=== PATIENT | female | born 1945 | race Caucasian/White ===

== ENCOUNTER → 2016-07-06 | Outpatient (CLI) | payer MEDICARE, BC ==
[~2016-07-06] MED LIST: COMBIVENT INH; GUAI600T PO; MONT10TA21 PO; OMEP40CA6 PO
--- NOTE | 2016-07-08 08:47 | HKNOTE ---
DATE OF SERVICE: Now 10 days following arthroscopic surgery on her right knee. The patient is very pleased with the results so far. Her knee feels markedly improved, the wounds are healing well. Sutures were remove d. She is being sent for a course of outpatient physical therapy. She will be seen again as baldev henderson. Dictated By: DENISE NAIK/SANDEE Conf#: [id number] DID#: [id number]
== END | disposition home or self-care (01) ==
LOC: HKI 15:46
DX: Z47.89 Encounter for other orthopedic aftercare (principal); Z98.890 Other specified postprocedural states
CPT/HCPCS: G0463

== ENCOUNTER → 2016-08-03 | Outpatient (CLI) | payer MEDICARE, BC ==
--- NOTE | 2016-08-03 23:41 | HKNOTE ---
DATE OF SERVICE: 08/03/2016 Now 6 weeks following arthroscopic surgery on her right knee. She complains of pain and swelling in the knee. She was getting physical therapy and her therapist referred her back to me. Yesterday, she had a palpable lump behind her knee, which disappeared after the physical therapist massaged it. The patient indicates that she has some concern about the "cyst" which was seen on the MRI report. She complains that the knee swells. She does not use a walking aid. She notes that she has never u sed a walking aid since the surgery. She has also "not taken a single pain pill since the surgery." PHYSICAL EXAMINATION: The patient's temperature is 97.3. There is no external sign of infection or inflammation around her knee. The knee lacks 20 degrees of flexion. The wounds are well healed. There is no pitting edema of the leg. There is no calf tenderness. There is soft tissue swelling a round the knee, but no effusion in the knee. MANAGEMENT: The patient was advised to continue with the physical therapy. It is still early for h er to see the final result. Note that I reviewed her intraoperative pictures with her and these jessica w a remarkably normal looking knee with simply a tear of the posterior horn of the medial meniscus a nd some minimal arthritis. She should expect to make a complete recovery. She will be seen again o nly as necessary. Dictated By: EDNISE NAIK/SANDEE Conf#: [id number] DID#: [id number]
== END | disposition home or self-care (01) ==
LOC: HKI 14:51
DX: Z47.89 Encounter for other orthopedic aftercare (principal); S83.241D Other tear of medial meniscus, current injury, right knee, subsequent encounter; M17.11 Unilateral primary osteoarthritis, right knee
CPT/HCPCS: G0463

== ENCOUNTER → 2016-08-31 | Outpatient (CLI) | payer MEDICARE, BC ==
--- NOTE | 2016-09-01 07:12 | HKNOTE ---
DATE OF SERVICE: 08/31/2016 MAIN COMPLAINT: Pain and swelling in her right knee. HISTORY OF MAIN COMPLAINT: Patient underwent operative arthroscopy on her right knee on 06/22/2016. She was found to have compound tears of the posterior horn of the medial meniscus. There were min imal degenerative changes. Patient states that she was doing quite well after surgery until she suddenly developed pain and ins tability in the knee after she went for a history. Quite well after surgery until she suddenly developed swelling in the knee. She thinks it may be re lated to her activity. She had been going for long walks with her as well as by herself. She is not using a walker. OBJECTIVE: The knee is swollen over the medial aspect of the knee suggestive of fluid tracking back from the knee. DICTATION ENDS HERE Dictated By: DENISE NAIK/SANDEE Conf#: [id number] DID#: [id number]
== END | disposition home or self-care (01) ==
LOC: HKI 14:33
DX: Z47.89 Encounter for other orthopedic aftercare (principal); S83.241D Other tear of medial meniscus, current injury, right knee, subsequent encounter; M25.461 Effusion, right knee; M25.561 Pain in right knee
CPT/HCPCS: 20610; G0463; J3301

== ENCOUNTER → 2016-09-07 | Outpatient (CLI) | payer MEDICARE, BC ==
--- NOTE | 2016-09-08 20:29 | HKNOTE ---
DATE OF SERVICE: 09/07/2016 The patient's knee has now made a full recovery. She walks without a walking aid. She has no pain. Her range of motion of the knee is 0 to 120 degrees. The fluid was withdrawn from her knee at the last visit are entirely normal. There was no sign of infection or any other problem. The wounds a re well healed. MANAGEMENT: The patient was given reassurance that she is doing well. No further treatment is need ed. She will see me again only as necessary. Dictated By: DENISE NAIK/SANDEE Conf#: [id number] DID#: [id number]
== END | disposition home or self-care (01) ==
LOC: HKI 14:28
DX: Z47.89 Encounter for other orthopedic aftercare (principal)

== ENCOUNTER → 2016-09-15 | Outpatient (CLI) | payer MEDICARE, BC ==
--- NOTE | 2016-09-15 17:35 | HKNOTE ---
DATE OF SERVICE: 09/15/2016 SUBJECTIVE: The patient comes back to the office complaining of pain in the right knee. She has a great deal of difficulty walking because of the pain. When I last saw her, she was is co mpletely pain free and we thought she had made a full recovery. PHYSICAL EXAMINATION: Right knee: No external sign of infection or inflammation. There is pain on the lightest skin touch over the anteromedial aspect of the knee superior to the arthroscopy portal . The pain is markedly severe on even the lightest touch. The knee itself has an excellent range o f motion without pain. There are no other symptoms or clinical findings which might suggest sympathetic dystrophy. MANAGEMENT: Under sterile conditions, the 4 small areas that patient indicates are painful were inj ected with 2% lidocaine and remarkably all her pain went away. Note that these injections were pure ly into the skin and not into the knee joint. The injections were followed with a total of 2 mL of Kenalog distributed between the 4 tender points . The patient will be seen again by me tomorrow to see how she is doing. Dictated By: DENISE NAIK/SANDEE Conf#: [id number] DID#: [id number]
== END | disposition home or self-care (01) ==
LOC: HKI 13:52
DX: M25.561 Pain in right knee (principal)
CPT/HCPCS: 20610; G0463; J3301

== ENCOUNTER → 2016-09-16 | Outpatient (CLI) | payer MEDICARE, BC ==
--- NOTE | 2016-09-16 20:54 | HKNOTE ---
DATE OF SERVICE: HISTORY OF PRESENT ILLNESS: Patient comes in for reevaluation. Remarkably, her knee pain is much i mproved after just a skin injection from yesterday. Even when she walks, she has minimal pain; cosmedeep rossi, she is walking on tiptoe on the right leg, and she does not allow me to fully extend the right knee. PROCEDURE: Under sterile conditions, was given an injection of 5 mL of 2% lidocaine into the right knee, at which point, I could examine it better. PHYSICAL EXAMINATION RIGHT KNEE: The right knee definitely lacks at least 5 degrees of extension, suggesting that there may be a retear of the meniscus. Something is seriously blocking the knee extension. Flexion is fu ll. There is no tenderness over the medial joint. MANAGEMENT: The patient is being sent for a new MRI scan with gadolinium and she will be seen again on Tuesday for reevaluation. It would be my findings that she almost certainly will need to have a nother arthroscopic operation on the knee. Dictated By: DENISE NAIK/SANDEE Conf#: [id number] DID#: [id number]
== END | disposition home or self-care (01) ==
LOC: HKI 14:08
DX: M25.561 Pain in right knee (principal)

== ENCOUNTER → 2016-10-19 | Outpatient (CLI) | payer MEDICARE, BC ==
--- NOTE | 2016-10-19 19:54 | HKNOTE ---
DATE OF SERVICE: 10/19/2016 The patient's knee is very much improved. She is no longer using her walker. She still gets some p ain. She did not get the MRI that I requested "because I can't do it doctor, I can't do it." She s tates that she gets extreme claustrophobia. At the [facility] they do not do gadolin ium. She states that they have tried giving her sedation in the past to get the MRI but she has not been able to do it. She was recently seen at [facility] to get another opinion from one of the orthopedi c surgeons (? name). He ordered a new MRI scan of the knee, but she states "I just couldn't do it." PHYSICAL EXAMINATION: VITAL SIGNS: Height 5 feet 7, weight 229 pounds, blood pressure 166/75, temperature 98.3. RIGHT KNEE: No sign of infection. The arthroscopy portals are healing well, 2+ effusion, ____+ cre pitus in the knee, none in patella. DISCUSSION: The patient is advised that since the knee is improving, our options are to leave it al one and do nothing, or to consider giving her a cortisone injection into the knee. The patient savannah cruz had a "stroke" when I suggested an injection into the knee. She states that she totally cannot s tand injections into her knees. I recommended to her that I give her a cortisone injection into the knee to see how much of an infla mmatory component there is to her pain. She still does get some instability in the knee. The patient declined to have a cortisone injection into her knee. She is getting physical therapy a nd she feels she is improving. She will see me again 2 weeks' time "when I can get myself used to the idea of getting an injection. " Dictated By: DENISE NAIK/SANDEE Conf#: [id number] DID#: [id number]
== END | disposition home or self-care (01) ==
LOC: HKI 14:37
DX: Z47.89 Encounter for other orthopedic aftercare (principal); M25.561 Pain in right knee
CPT/HCPCS: G0463

== ENCOUNTER → 2016-10-27 | Outpatient (CLI) | payer MEDICARE, BC ==
--- NOTE | 2016-10-27 15:42 | PN ---
Date/Time of Note Date/Time of Note DATE: 10/27/16 TIME: 15:35 Outpatient Progress Note Chief Complaint Right knee pain. HPI 71-year-old female presents today for follow-up regarding right knee pain. She has had a recent arthroscopic surgery on 06/22/2016 with partial medial meniscectomy performed. Patient states that on average, she experiences 7-8/10 pain to the right knee primarily to the medial compartment. When asked, patient states that most if not all of her pain is to the medial compartment. Denies any falls. Patient was last seen on 10/19/2016 and received cortisone injection to the right knee but states that she is received no relief. Patient was originally scheduled to follow-up for joint aspiration as she is call Dr. Curiel and states that she had significant swelling. In the morning, she states that swelling is minimal and equal to that of the left side but as the day goes on, she experiences significant swelling with pain to the medial compartment. Denies any chest pain/tightness. No calf pain. No falls. Uses single-point cane for assisted ambulation. Presents with her today. Review of Systems Const: No Fever, no chills, no Fatigue, normal appetite, no diaphoresis. Resp: No SOB, no wheezing, no chest pain. CV: No chest pain, no palpitaions, no MCCARTHY. Physical Exam Blood pressure 157/70, temperature is 97.7, pulse is 79, respiratory rate is 20 , height is 5 feet 7 inches, weight is 229 pounds General Appearance: well-developed, well-nourished, in no acute distress. Mild to moderate swelling to the right knee. Tenderness to palpation over the medial compartment. No tenderness to palpation throughout the rest of the knee. Patient is able to fully extend and flex the knee up to 100. Pain with flexion. No calf pain/negative Homans sign. Normal sensory examination to light touch. 4+/[address] weakness secondary to pain. Imaging: X-ray to the right knee performed on 10/27/2016 significant for moderate to severe joint space narrowing to the medial compartment with mild joint space narrowing to the lateral compartment. Small osteochondroma seen to the distal femur but just proximal to the femoral epicondyles. When x-ray of the right knee is compared to previous x-ray of 2012 there is slightly regressed joint space narrowing to the medial compartment. This is also where patient is having majority of her pain. No evidence of any acute fracture injury seen. Allergies Coded Allergies: adhesive tape (Verified Allergy, Intermediate, RASH, 07/25/09) benzoin (Verified Allergy, Intermediate, RASH, 07/25/09) erythromycin base (Verified Allergy, Intermediate, RASH, 07/25/09) acetaminophen (Verified Allergy, Unknown, ITCHING, 06/22/16) amoxicillin (Unverified Allergy, Unknown, 06/21/16) hydrocodone (Verified Allergy, Unknown, ITCHING, 06/22/16) moxifloxacin (Unverified Allergy, Unknown, 06/21/16) propoxyphene (Verified Allergy, Unknown, itching, 06/22/16) Assessment/Plan * Attempted joint aspiration performed today to the right knee. Area was sterilized with Betadine swab. 0.25% Marcaine was injected to the superior medial portion of the knee with patient lying supine for local anesthesia. Once local anesthesia was achieved 16-gauge needle attached to 60 cc syringe was engaged. No fluid was able to be extracted. Patient was observed for 5-10 minutes prior to discharge. Surprisingly, patient states that she is experiencing no pain after local anesthesia was performed. Was able to walk independently out of the office. * Lengthy discussion had with patient regarding suspected progressed osteoarthritic changes to the right knee primarily to the medial compartment of the knee with severe joint space narrowing. Although there is no [id number] deformity, it is likely that patient may be candidate for total knee arthroplasty in the future. Continue with supportive measures such as anti- inflammatories, ice modalities, elevating the leg while at rest as well as at home exercises and daily stretching to prevent stiffness and rigidity. Lengthy discussion and description of osteoarthritis had with patient and patient's . * At this stage she may follow-up as needed but if pain continues to be severe, recommend that she follow-up with Dr. Curiel as possible repeat surgery consult may be necessary. Medications Home Meds Reported Medications Guaifenesin (MUCUS ER) 600 Mg Tablet.er, 1200 MG PO DAILY 07/09/13 Omeprazole* (Omeprazole*) 40 Mg Capsule.dr, 40 MG PO DAILY 07/04/13 [Combivent] No Conflict Check, 1 PUFF INH BID 1/1/14 Montelukast Sodium* (Singulair*) 10 Mg Tablet, PO DAILY, 0 Refills 07/25/09 KATHLEEN FERREIRA PA-C Oct 27, 2016 15:42
--- NOTE | 2016-10-28 11:29 | RADRPT ---
PROCEDURE: XR right knee. CLINICAL INDICATION: Knee pain TECHNIQUE: AP weightbearing, PA weightbearing, lateral weightbearing and sunrise views are availab le for review. COMPARISON: 05/18/2016 FINDINGS: There is moderate osteoarthrosis involving the medial tibial femoral compartment and mild osteoarthr osis involving the patellofemoral compartment. This is associated with joint space narrowing, subcho ndral sclerosis and osteophytosis. There is no change in the 1 x 2.6 cm osteochondroma arising from the posterior distal femoral cortex. There is otherwise normal mineralization, architecture and alignment. No fractures are identified. No osseous lesions are identified. The soft tissues are unremarkable. IMPRESSION: Moderate osteoarthrosis involving the medial tibial femoral compartment and mild osteoarthrosis invo lving the patellofemoral. No change in 1 x 2.6 cm osteochondroma arising from the posterior distal femoral cortex RPTAT: HGDB .Kwan Cisneros MD, MD Date Time Electronically viewed and signed by .Kwan Cisneros MD, on 10/28/2016 11:29 .B/
== END | disposition home or self-care (01) ==
LOC: HKI 14:35
DX: M25.561 Pain in right knee (principal); M17.11 Unilateral primary osteoarthritis, right knee
CPT/HCPCS: G0463

== ENCOUNTER 2019-02-15 14:25 | Emergency (ER) | payer MEDICARE, BC ==
[~2019-02-15] VITALS: Ht 170.2 cm; Wt 104.5 kg
[~2019-02-15 14:25] MED LIST changes: +CYCL10TA7 PO; +IBUP-1542 PO; +TRAM50TA2 PO
[2019-02-15 14:27] VITALS: PULSE 92; RESP 20; Ht 170.2 cm; Wt 104.5 kg
[2019-02-15 15:56] VITALS: BP 177/84
== END 2019-02-15 17:23 | disposition home or self-care (01) ==
LOC: FTE 14:25
DX: M54.5 Low back pain (principal); I10 Essential (primary) hypertension; E11.9 Type 2 diabetes mellitus without complications
CPT/HCPCS: 96372; 99284; J1885